=== PATIENT | male | born 1965 | race Caucasian/White ===

== ENCOUNTER 2019-01-09 12:14 | Day surgery (SDC) | payer OTHER | END 2019-01-09 17:35 | disposition home or self-care (01) | LOC: OUT 12:14 → EDSTATUS 14:00 → OUT 17:35 | PROVIDERS: ATTEND Urology | DX: I86.1 Scrotal varices (principal); Z72.89 Other problems related to lifestyle | CPT/HCPCS: 37241; 99156; 99157; C1751; C1769; C1887; C1894; J2250; J3010; Q9966; 75894; J2310 ==